=== PATIENT | male | born 1960 | race Caucasian/White ===

== ENCOUNTER 2023-10-13 03:37 | Emergency (ER) | payer MEDICARE, SELFPAY ==
[2023-10-13 03:56] VITALS: BP 163/91; PULSE 89; RESP 16; TEMP 36.4; O2SAT 96; BMI 23.6
--- NOTE | 2023-10-13 04:18 | XRR_ITS ---
PROCEDURE INFORMATION: Exam: XR Right Ankle Exam date and time: 10/13/2023 5:06 AM Age: 63 years old Clinical indication: Injury or trauma; Fall; Sprain or strain; Right; Patient HX: Patient tripped and sustained twisting injury to RT foot and ankle. C/O pain to lateral side of foot and ankle. TECHNIQUE: Imaging protocol: Radiologic exam of the right ankle. Views: 3 or more views. COMPARISON: No relevant prior studies available. FINDINGS: Bones/joints: No acute fracture or dislocation is noted. The skeletal structures seem age-appropriate. Mild DJD. Soft tissues: Unremarkable. XR/XR ankle RT min 3V* [id number] IMPRESSION: 1. No acute findings. 2. Foot x-ray pending.
--- NOTE | 2023-10-13 05:14 | XRR_ITS ---
PROCEDURE INFORMATION: Exam: XR Right Foot Exam date and time: 10/13/2023 5:19 AM Age: 63 years old Clinical indication: Injury or trauma; Fall; Sprain or strain; Right; Patient HX: Patient tripped and sustained twisting injury to RT foot and ankle. C/O pain to lateral side of foot and ankle. ; Additional info: Injury foot pain TECHNIQUE: Imaging protocol: Radiologic exam of the right foot. Views: 3 or more views. COMPARISON: CR (LOW EXM, ) 10/13/2023 5:06 AM FINDINGS: Bones/joints: There are densities adjacent to the lateral talus and posterior to the navicular. No dislocation. Soft tissues: Mild distal foot swelling. XR/XR foot RT min 3V* [id number] IMPRESSION: 1. No surgical fracture or dislocation. 2. There are likely corticated densities adjacent to the midfoot as described, both medially and laterally. These may represent chip/avulsion injuries of uncertain age. [place] or old injuries are also possible. Follow with orthopedics and splinting.
--- NOTE | 2023-10-13 05:29 | W.ED.EXTPRO ---
HPI - Extremity Problem General: Chief complaint: Extremity Injury, Lower Stated complaint: right foot injury Time Seen by Provider: 10/13/23 05:01 History of Present Illness: 63-year-old male who turned his foot 3 days ago, and complains of pain with weightbearing, along with some swelling. Associated symptoms: Deny fever(s) Review of Systems Const: Denies: fever(s) GI: Denies: vomiting Physical Exam Const: COMMON NORMALS: no acute distress GENERAL APPEARANCE: cooperative HENMT: COMMON NORMALS: normocephalic and atraumatic HEAD & SCALP: normocephalic and atraumatic Eye: COMMON NORMALS: Equal, round and reactive pupils present and EOMs intact bilaterally PUPIL: Yes Equal, round and reactive pupils present Resp: COMMON NORMALS: normal respiratory effort and No use of accessory muscles Extremity: NARRATIVE EXTREMITY EXAM: Exam of the RLE reveals TTP over the lateral ankle. mild distal fibular tenderness. TTP at the base of the 5th metatarsal. mild soft tissue swelling. no deformity. pulses and sensation intact. Neuro: KT COMA SCALE: document GCS findings [place] coma scale eye opening: Spontaneous [place] coma scale verbal response: Orientated [place] coma scale motor response: Obey commands [place] coma scale total score: 15 Course Vital Signs: Vital signs: Vital Signs Temperature 97.5 F L 10/13/23 03:56 Pulse Rate 89 10/13/23 03:56 Respiratory Rate 16 10/13/23 03:56 Blood Pressure 163/91 10/13/23 03:56 Pulse Oximetry 96 10/13/23 03:56 Oxygen Delivery Me thod Room Air 10/13/23 03:56 MDM - Extremity (Nontraumatic) Medical Decision Making X-rays negative for fracture. Lab Data Radiology Impressions Ankle X-Ray 10/13/23 04:18 IMPRESSION: 1. No acute findings. 2. Foot x-ray pending. Foot X-Ray 10/13/23 05:14 IMPRESSION: 1. No surgical fracture or dislocation. 2. There are likely corticated densities adjacent to the midfoot as described, both medially and laterally. These may represent chip/avulsion injuries of uncertain age. Ossicles or old injuries are also possible. Follow with orthopedics and splinting. XR interpretation done by ED provider, pending radiology final review Discharge Plan Discharge Patient Disposition: Home Clinical Impression: Ankle sprain and strain Condition: Stable Prescriptions: New ketorolac 10 mg tablet 10 mg PO TID PRN (Reason: pain) Qty: 10 0RF Discharge Orders: Discharge ED (Routine); Ordered 10/13/23 Ordered By: Chester Juan Referrals: Francisco Land PA [Physician [employer] Precision Assembler] - 1-3 days Patient Instructions: Ankle Sprain (ED), Opioid Safety, Pain Management Activity Restrictions/Additional Instructions: You may weight-bear as tolerated. Ice for pain and swelling. Medication as directed. You should wear a supportive boot or lace up shoe until pain is improved. See your doctor next week for follow-up Coding Level of Care Code ED Surveillance Camera Technician for Margarito Mahan
== END 2023-10-13 05:40 | disposition home or self-care (01) ==
PROVIDERS: Emergency Provider Emergency Medicine
DX: S93.401A Sprain of unspecified ligament of right ankle, initial encounter (principal); S96.911A Strain of unspecified muscle and tendon at ankle and foot level, right foot, initial encounter; X58.XXXA Exposure to other specified factors, initial encounter
CPT/HCPCS: 73610; 73630; 99283